=== PATIENT | male | born 1965 | race Caucasian/White ===

== ENCOUNTER 2018-08-25 12:31 | Emergency (ER) | payer OTHER ==
[~2018-08-25] VITALS: Ht 170.2 cm; Wt 75.0 kg
--- NOTE | 2018-08-25 12:37 | NUR ---
Pt BIB [facility]- c/o sudden onset sub sternal CP starting this morning at 0700 while at work. Pt states that while the pain was present it was 8/10 and he had SOB and nausea. Pt states that the pain is now resolved. Pt states that over the last week has had a cough/cold type sx. Pt placed in gown, positioned for comfort in bed. Continuous heart, oxygen and BP Monitors applied, all safety measures observed.
--- NOTE | 2018-08-25 13:15 | NUR ---
break rn: md Reddy has assessed pt, NAD, no needs at this time, awaiting labs and rads
[2018-08-25] MEDS ORDERED: SODIUM CHLORIDE FLUSH 10ML SYR IVF ONE (13:30)
[2018-08-25 13:39] LABS: BASOPHILS # (AUTO) 0.11 x10^3/uL (0-0.1); BASOPHILS % (AUTO) 1 % (0-1); EOSINOPHILS # (AUTO) 0.06 x10^3/uL (0-0.4); EOSINOPHILS % (AUTO) 1 % (1-7); LYMPHOCYTES # (AUTO) 1.03 x10^3/uL (1-3.4); LYMPHOCYTES % (AUTO) 8 % (22-44); MD NO; MEAN CORPUSCULAR HEMOGLOBIN 30.9 pg (27.5-34.5); MEAN CORPUSCULAR HGB CONC 34.2 g/dL (33.2-36.2); MEAN CORPUSCULAR VOLUME 90.1 fL (81-97); MEAN PLATELET VOLUME 9.1 fL (7.4-10.4); MONOCYTES % (AUTO) 7 % (2-9); NEUTROPHILS # (AUTO) 11.17 x10^3/uL (1.8-6.8); NEUTROPHILS % (AUTO) 84 % (42-75); PLATELET COUNT 195 x10^3/uL (130-400); RED BLOOD COUNT 5.13 x10^6/uL (4.38-5.82); RED CELL DISTRIBUTION WIDTH 12.8 % (9.4-14.8)
[2018-08-25] MEDS ORDERED: OMNIPAQUE 350 MG/ML, 100ML BOTTLE ONE (13:41)
[2018-08-25 13:45] LABS: ALBUMIN 3.8 g/dL (3.4-5.0); ANION GAP 6 mmol/L (5-15); CALCIUM 8.7 mg/dL (8.5-10.1); CHLORIDE 111 mmol/L (98-107)
[2018-08-25 13:48] LABS: ALANINE AMINOTRANSFERASE 49 U/L (12-78); ALKALINE PHOSPHATASE 76 U/L (45-117); BILIRUBIN,TOTAL 0.2 mg/dL (0.2-1.0); CHOL/HDL RATIO 6.6; CHOLESTEROL, TOTAL 223 mg/dL (140-239); CREATININE 1.17 mg/dL (0.7-1.3); HDL CHOL % 15 % (26-37); HDL CHOLESTEROL (DIRECT) 34 mg/dL (40-60); LDL CHOLESTEROL,CALCULATED 139 mg/dL (54-169); LDL/HDL RATIO 4.1 (0.5-3.0); TOTAL PROTEIN 6.9 g/dL (6.4-8.2); TRIGLYCERIDES 250 mg/dL (50-200); TROPONIN I < 0.015 ng/mL (0.000-0.045); VLDL CHOLESTEROL 50 mg/dL (0-25)
[2018-08-25 13:53] LABS: PSA SCREEN 0.88 ng/mL (0.00-4.00)
[2018-08-25 14:34] VITALS: BP 114/71
== END 2018-08-25 14:45 | disposition home or self-care (01) ==
LOC: ED 13:59
DX: R07.2 Precordial pain (principal)
CPT/HCPCS: 36415; 71275; 80053; 80061; 82306; 82627; 82670; 83735; 84403; 84443; 84484; 85025; 93005; 99284; G0103; Q9967

== ENCOUNTER 2018-09-28 12:57 | Inpatient (IN) | payer OTHER ==
[~2018-09-28] VITALS: Ht 170.2 cm; Wt 76.5 kg
[2018-09-28 14:11] VITALS: BP 115/81
[2018-09-28] MEDS ORDERED: ASPI81TA45 PO (14:27)
[2018-09-28] MEDS ORDERED: ATOR40TA78 PO (14:27)
[2018-09-28] MEDS ORDERED: CARV3.122 PO (14:27)
[2018-09-28] MEDS ORDERED: ISOS10TA6 PO (14:27)
[2018-09-28 15:29] LABS: INTERNATIONAL NORMALIZED RATIO 1.05 (0.93-1.1)
[2018-09-28] MEDS ORDERED: HEPARIN 1,000 UNITS/ML, 10ML ONE (16:22)
[2018-09-28] MEDS ORDERED: VERAPAMIL 2.5 MG/ML, 2ML ONE (16:22)
[2018-09-28] MEDS ORDERED: MIDAZOLAM 1 MG/ML, 2ML ONE ×3 (16:22→16:54)
[2018-09-28] MEDS ORDERED: FENTANYL PF 100 MCG/2ML ONE (16:22)
[2018-09-28] MEDS ORDERED: LIDOCAINE-MPF 1%, 5ML ONE (16:22)
[2018-09-28 16:29] LABS: BASOPHILS # (AUTO) 0.03 x10^3/uL (0-0.1); BASOPHILS % (AUTO) 0 % (0-1); EOSINOPHILS # (AUTO) 0.09 x10^3/uL (0-0.4); EOSINOPHILS % (AUTO) 1 % (1-7); LYMPHOCYTES # (AUTO) 1.87 x10^3/uL (1-3.4); LYMPHOCYTES % (AUTO) 25 % (22-44); MD NO; MEAN CORPUSCULAR HEMOGLOBIN 30.8 pg (27.5-34.5); MEAN CORPUSCULAR HGB CONC 33.9 g/dL (33.2-36.2); MEAN CORPUSCULAR VOLUME 90.9 fL (81-97); MEAN PLATELET VOLUME 9.4 fL (7.4-10.4); MONOCYTES # (AUTO) 0.47 x10^3/uL (0.2-0.8); MONOCYTES % (AUTO) 6 % (2-9); NEUTROPHILS # (AUTO) 5.15 x10^3/uL (1.8-6.8); NEUTROPHILS % (AUTO) 68 % (42-75); PLATELET COUNT 219 x10^3/uL (130-400); RED BLOOD COUNT 5.27 x10^6/uL (4.38-5.82); RED CELL DISTRIBUTION WIDTH 12.7 % (9.4-14.8)
[2018-09-28 16:33] LABS: ANION GAP 4 mmol/L (5-15); CALCIUM 9.4 mg/dL (8.5-10.1); CHLORIDE 112 mmol/L (98-107); CREATININE 1.15 mg/dL (0.7-1.3)
[2018-09-28] MEDS ORDERED: ISOS30TA8 PO (18:16)
[2018-09-28] MEDS ORDERED: TRAZODONE 50MG TABLET PO PRN (19:00)
[2018-09-28] MEDS ORDERED: ONDANSETRON 2MG/ML, 2ML IV PRN (19:00)
[2018-09-28 19:03] VITALS: BP 125/80
[2018-09-28] MEDS: CARVEDILOL 3.125 MG TABLET PO SCH (19:40)
[2018-09-28] MEDS: ATORVASTATIN 40 MG TABLET PO SCH (21:20)
[2018-09-29 01:28] VITALS: BP 102/67
[2018-09-29] MEDS: ACETAMINOPHEN 325 MG TABLET PO PRN ×2 (01:32→14:36)
[2018-09-29 05:12] LABS: ANION GAP 8 mmol/L (5-15); CALCIUM 8.8 mg/dL (8.5-10.1); CHLORIDE 112 mmol/L (98-107); CHOLESTEROL, TOTAL 148 mg/dL (140-239); CREATININE 1.09 mg/dL (0.7-1.3); TRIGLYCERIDES 186 mg/dL (50-200); VLDL CHOLESTEROL 37 mg/dL (0-25)
[2018-09-29 05:14] LABS: CHOL/HDL RATIO 4.2; HDL CHOL % 24 % (26-37); HDL CHOLESTEROL (DIRECT) 35 mg/dL (40-60); LDL CHOLESTEROL,CALCULATED 76 mg/dL (54-169); LDL/HDL RATIO 2.2 (0.5-3.0)
[2018-09-29] MEDS: CARVEDILOL 3.125 MG TABLET PO SCH ×2 (06:30→18:22)
[2018-09-29] MEDS: ASPIRIN 81 MG TABLET CHEW PO SCH (07:28)
[2018-09-29] MEDS: ISOSORBIDE DINITRATE 10 MG TABLET PO SCH (07:29)
[2018-09-29 09:34] VITALS: BP 94/60
[2018-09-29 14:20] VITALS: BP 105/69
[2018-09-29] MEDS: HEPARIN 5,000 UNITS/ML, 1ML SQ SCH ×2 (14:36→21:26)
[2018-09-29 18:22] VITALS: BP 110/73
[2018-09-29 19:31] VITALS: BP 116/78
[2018-09-29] MEDS: ATORVASTATIN 40 MG TABLET PO SCH (21:26)
[2018-09-30 03:25] VITALS: BP 112/72
[2018-09-30] MEDS: HEPARIN 5,000 UNITS/ML, 1ML SQ SCH ×3 (05:24→20:57)
[2018-09-30 07:48] VITALS: BP 114/76
[2018-09-30 09:00] VITALS: BP 114/52
[2018-09-30] MEDS: CARVEDILOL 3.125 MG TABLET PO SCH ×2 (09:03→18:34)
[2018-09-30] MEDS: ASPIRIN 81 MG TABLET CHEW PO SCH (09:04)
[2018-09-30] MEDS: ISOSORBIDE DINITRATE 10 MG TABLET PO SCH (09:04)
[2018-09-30 14:07] VITALS: BP 104/68
[2018-09-30] MEDS: ACETAMINOPHEN 325 MG TABLET PO PRN (14:15)
[2018-09-30] MEDS ORDERED: IBUPROFEN 200 MG TABLET PO ONE (17:00)
[2018-09-30 18:33] VITALS: BP 110/70
[2018-09-30 19:56] VITALS: BP 112/66
[2018-09-30] MEDS: ATORVASTATIN 40 MG TABLET PO SCH (20:56)
[2018-10-01 03:50] VITALS: BP 98/57
[2018-10-01] MEDS: HEPARIN 5,000 UNITS/ML, 1ML SQ SCH (05:54)
[2018-10-01 07:03] VITALS: BP 108/73
[2018-10-01] MEDS ORDERED: CEFUROXIME 1.5 GM in SODIUM CHLORIDE 0.9% 50 ML IVPB ONE ×2 (07:30→20:30)
[2018-10-01] MEDS: ASPIRIN 81 MG TABLET CHEW PO SCH (08:26)
[2018-10-01] MEDS: CARVEDILOL 3.125 MG TABLET PO SCH ×2 (08:26→18:07)
[2018-10-01] MEDS: ISOSORBIDE DINITRATE 10 MG TABLET PO SCH (08:26)
[2018-10-01] MEDS ORDERED: INSULIN LISPRO 100 UNITS/ML, PEN SQ-INSULIN SCH (09:00)
[2018-10-01] MEDS: SODIUM CHLORIDE FLUSH 10ML SYR IVF SCH ×2 (09:00→21:50)
[2018-10-01] MEDS ORDERED: CHLORHEXIDINE 15 ML UDC MM PRN (09:00)
[2018-10-01 09:26] LABS: INTERNATIONAL NORMALIZED RATIO 1.02 (0.93-1.1); PROTHROMBIN TIME 10.7 Seconds (9.6-11.5)
[2018-10-01 09:28] LABS: ALANINE AMINOTRANSFERASE 50 U/L (12-78); ALBUMIN 3.8 g/dL (3.4-5.0); ANION GAP 7 mmol/L (5-15); CALCIUM 9.2 mg/dL (8.5-10.1); CHLORIDE 111 mmol/L (98-107); CREATININE 1.07 mg/dL (0.7-1.3)
[2018-10-01 09:29] LABS: BASOPHILS # (AUTO) 0.02 x10^3/uL (0-0.1); BASOPHILS % (AUTO) 0 % (0-1); EOSINOPHILS # (AUTO) 0.09 x10^3/uL (0-0.4); EOSINOPHILS % (AUTO) 2 % (1-7); LYMPHOCYTES # (AUTO) 1.44 x10^3/uL (1-3.4); LYMPHOCYTES % (AUTO) 23 % (22-44); MD NO; MEAN CORPUSCULAR HEMOGLOBIN 30.9 pg (27.5-34.5); MEAN CORPUSCULAR HGB CONC 33.6 g/dL (33.2-36.2); MEAN PLATELET VOLUME 9.3 fL (7.4-10.4); MONOCYTES # (AUTO) 0.37 x10^3/uL (0.2-0.8); MONOCYTES % (AUTO) 6 % (2-9); NEUTROPHILS % (AUTO) 69 % (42-75); PLATELET COUNT 208 x10^3/uL (130-400); RED BLOOD COUNT 5.21 x10^6/uL (4.38-5.82); RED CELL DISTRIBUTION WIDTH 13.2 % (9.4-14.8)
[2018-10-01 09:30] LABS: ALKALINE PHOSPHATASE 80 U/L (45-117); BILIRUBIN,TOTAL 0.4 mg/dL (0.2-1.0); TOTAL PROTEIN 7.3 g/dL (6.4-8.2)
[2018-10-01] MEDS ORDERED: HEPARIN 5,000 UNITS/ML, 1ML SQ SCH (10:00)
[2018-10-01 11:18] LABS: HEMOGLOBIN A1C 5.8 % (4.2-6.3)
[2018-10-01 14:04] VITALS: BP 115/65
[2018-10-01 18:31] LABS: MICROSCOPIC NOT IND
[2018-10-01 18:39] VITALS: BP 115/76
[2018-10-01] MEDS: ATORVASTATIN 40 MG TABLET PO SCH (21:49)
[2018-10-02 03:59] VITALS: BP 100/61
[2018-10-02 06:38] VITALS: BP 128/89
[2018-10-02 06:39] VITALS: BP 110/74
[2018-10-02] MEDS: CARVEDILOL 3.125 MG TABLET PO SCH ×2 (06:41→18:00)
[2018-10-02 07:30] VITALS: BP 132/66
[2018-10-02] MEDS ORDERED: VANCOMYCIN 1,200 MG in SODIUM CHLORIDE 0.9% 250 ML IVPB ONE (07:30)
[2018-10-02] MEDS ORDERED: EPINEPHRINE 2 MG in SODIUM CHLORIDE 0.9% 248 ML IV SCH (07:30)
[2018-10-02] MEDS ORDERED: POTASSIUM CHLORIDE 80 MEQ, SODIUM BICARBONATE 8.4% 10 MEQ, MAGNESIUM SULFATE 0.5 GM, LI... IV PRN (07:30)
[2018-10-02] MEDS ORDERED: CEFUROXIME 1.5 GM in SODIUM CHLORIDE 0.9% 50 ML IVPB ONE (07:30)
[2018-10-02] MEDS ORDERED: DEXMEDETOMIDINE 200 MCG in SODIUM CHLORIDE 0.9% 48 ML IV SCH (07:30)
[2018-10-02] MEDS ORDERED: REGULAR INSULIN 62.5 UNITS in SODIUM CHLORIDE 0.9% 249.375 ML IV PRN ×2 (07:30→17:55)
[2018-10-02] MEDS ORDERED: MANNITOL PMX 20% 500 ML IVPB PRN (07:30)
[2018-10-02] MEDS ORDERED: CEFUROXIME 1.5 GM in SODIUM CHLORIDE 0.9% 50 ML IVPB PRN (07:30)
[2018-10-02] MEDS ORDERED: PHENYLEPHRINE 10 MG in SODIUM CHLORIDE 0.9% 249 ML IV PRN ×2 (07:30→17:55)
[2018-10-02] MEDS ORDERED: ALBUMIN HUMAN 5% 500 ML IV PRN (07:30)
[2018-10-02] MEDS: ISOSORBIDE DINITRATE 10 MG TABLET PO SCH (07:36)
[2018-10-02] MEDS: ASPIRIN 81 MG TABLET CHEW PO SCH (07:37)
[2018-10-02] MEDS: SODIUM CHLORIDE FLUSH 10ML SYR IVF SCH ×3 (08:30→20:27)
[2018-10-02] MEDS: DOCUSATE 100 MG CAPSULE PO SCH ×2 (09:00→21:00)
[2018-10-02] MEDS ORDERED: FENTANYL PF 250 MCG/5ML ONE ×4 (09:25→09:26)
[2018-10-02] MEDS ORDERED: MIDAZOLAM 10MG/2 ML ONE (09:25)
[2018-10-02] MEDS ORDERED: ROCURONIUM 10MG/ML,5ML ONE ×2 (09:27)
[2018-10-02] MEDS ORDERED: AMINOCAPROIC ACID 250 MG/ML, 20ML ONE ×2 (09:27)
[2018-10-02] MEDS ORDERED: PROPOFOL 10 MG/ML, 20ML ONE (09:27)
[2018-10-02] MEDS ORDERED: PAPAVERINE 30 MG/ML, 2ML ONE (11:09)
[2018-10-02] MEDS ORDERED: HEPARIN 1,000 UNITS/ML, 10ML ONE (11:09)
[2018-10-02] MEDS ORDERED: PAPAVERINE 30 MG/ML, 2ML IVPush ONE (13:12)
[2018-10-02] MEDS ORDERED: HEPARIN 1,000 UNITS/ML, 10ML IV ONE (13:13)
[2018-10-02] MEDS ORDERED: PROTAMINE SULFATE 10 MG/ML, 25ML ONE ×2 (13:41)
[2018-10-02] MEDS ORDERED: AMIODARONE 50 MG/ML, 3ML ONE ×2 (15:57)
[2018-10-02] MEDS ORDERED: DESMOPRESSIN 24 MCG in SODIUM CHLORIDE 0.9% 50 ML IVPB ONE (17:00)
[2018-10-02] MEDS ORDERED: DOBUTAMINE 250 MG in SODIUM CHLORIDE 0.9% 230 ML IV PRN (17:55)
[2018-10-02] MEDS ORDERED: DEXMEDETOMIDINE 200 MCG in SODIUM CHLORIDE 0.9% 48 ML IV PRN (17:55)
[2018-10-02] MEDS ORDERED: SODIUM CHLORIDE 0.9% 1,000 ML IV PRN (17:55)
[2018-10-02] MEDS ORDERED: LACTATED RINGERS 1,000 ML IV SCH (17:55)
[2018-10-02] MEDS ORDERED: VASOPRESSIN 50 UNIT in SODIUM CHLORIDE 0.9% 247.5 ML IV PRN (17:55)
[2018-10-02] MEDS ORDERED: NITROGLYCERIN/D5W PMX 250 ML IV PRN (17:55)
[2018-10-02] MEDS ORDERED: DEXTROSE 4 GM TAB.CHEW PO PRN (18:00)
[2018-10-02] MEDS ORDERED: SODIUM BICARB 8.4%, 50ML SYRINGE IV PRN (18:00)
[2018-10-02] MEDS ORDERED: ONDANSETRON 2MG/ML, 2ML IVPush PRN (18:00)
[2018-10-02] MEDS ORDERED: DEXTROSE 50%, 50ML SYRINGE IVPush PRN (18:00)
[2018-10-02] MEDS ORDERED: LACTATED RINGERS 1,000 ML IV PRN (18:00)
[2018-10-02] MEDS ORDERED: INSULIN REGULAR 100 UNITS/ML, 3ML VIAL IVPush PRN (18:00)
[2018-10-02] MEDS ORDERED: GLUCAGON 1 MG IM PRN (18:00)
[2018-10-02] MEDS ORDERED: HYDROcodone/APAP 5/325 TABLET PO PRN (18:00)
[2018-10-02] MEDS ORDERED: PROCHLORPERAZINE 5 MG/ML, 2ML IVPush PRN (18:00)
[2018-10-02] MEDS ORDERED: ACETAMINOPHEN 325 MG TABLET PO PRN (18:00)
[2018-10-02] MEDS ORDERED: EPINEPHRINE 2 MG in SODIUM CHLORIDE 0.9% 248 ML IV PRN (18:00)
[2018-10-02] MEDS ORDERED: MIDAZOLAM 1 MG/ML, 5ML IVPush PRN (18:00)
[2018-10-02] MEDS ORDERED: CEFUROXIME 1.5 GM in SODIUM CHLORIDE 0.9% 50 ML IVPB SCH (18:00)
[2018-10-02] MEDS: KSCALE TO 4.5 IV SCH (18:00)
[2018-10-02] MEDS ORDERED: ACETAMINOPHEN 650 MG SUPP PR PRN (18:00)
[2018-10-02] MEDS ORDERED: BISACODYL 10 MG SUPP PR PRN (18:00)
[2018-10-02] MEDS ORDERED: SODIUM BICARBONATE 1 MEQ/ML, 50ML VIAL ONE (18:15)
[2018-10-02] MEDS ORDERED: LIDOCAINE 2% 100MG/5ML SYRINGE ONE (18:15)
[2018-10-02] MEDS ORDERED: ALBUMIN HUMAN 25% 50 ML ONE (18:16)
[2018-10-02] MEDS ORDERED: methylPREDNISolone SOD SUCC 125 MG/2 ML ONE (18:16)
[2018-10-02] MEDS ORDERED: HEPARIN 1,000 UNITS/ML, 30ML ONE (18:16)
[2018-10-02 18:24] LABS: GLUCOSE BY BLOOD GAS ANALYZER 130 mg/dL (70-110); HEMOGLOBIN BY BLOOD GAS ANALYZ 12.8 g/dL (14.0-18.0); POTASSIUM BY BLOOD GAS ANALYZR 4.5 mmol/L (3.6-5.5)
[2018-10-02 18:59] LABS: INTERNATIONAL NORMALIZED RATIO 1.17 (0.93-1.1); PROTHROMBIN TIME 12.2 Seconds (9.6-11.5)
[2018-10-02] MEDS: MAGNESIUM SULFATE 1 GM in SODIUM CHLORIDE 0.9% 50 ML IVPB SCH (19:12)
[2018-10-02 19:45] VITALS: BP 117/77
[2018-10-02] MEDS: VANCOMYCIN 1,200 MG in SODIUM CHLORIDE 0.9% 250 ML IVPB SCH (20:26)
[2018-10-02] MEDS: morphine SULFATE 10 MG/ML, 1ML IVPush PRN ×2 (20:26→22:42)
[2018-10-02] MEDS: MUPIROCIN OINT 2%, 22GM NAS SCH (20:27)
[2018-10-02] MEDS: INSULIN LISPRO 100 UNITS/ML, PEN SQ-INSULIN SCH (21:00)
[2018-10-02] MEDS: ATORVASTATIN 40 MG TABLET PO SCH (21:00)
[2018-10-03] MEDS: OXYcodone IR 5MG TABLET PO PRN ×4 (03:30→20:20)
[2018-10-03 03:44] VITALS: BP 110/65
[2018-10-03 04:58] LABS: BASOPHILS # (AUTO) 0.03 x10^3/uL (0-0.1); BASOPHILS % (AUTO) 0 % (0-1); EOSINOPHILS % (AUTO) 0 % (1-7); LYMPHOCYTES # (AUTO) 0.42 x10^3/uL (1-3.4); LYMPHOCYTES % (AUTO) 3 % (22-44); MD NO; MEAN CORPUSCULAR HEMOGLOBIN 31.1 pg (27.5-34.5); MEAN CORPUSCULAR HGB CONC 33.6 g/dL (33.2-36.2); MEAN CORPUSCULAR VOLUME 92.3 fL (81-97); MONOCYTES # (AUTO) 0.68 x10^3/uL (0.2-0.8); MONOCYTES % (AUTO) 5 % (2-9); NEUTROPHILS # (AUTO) 11.81 x10^3/uL (1.8-6.8); NEUTROPHILS % (AUTO) 91 % (42-75); PLATELET COUNT 148 x10^3/uL (130-400); RED BLOOD COUNT 4.04 x10^6/uL (4.38-5.82); RED CELL DISTRIBUTION WIDTH 13.4 % (9.4-14.8)
[2018-10-03 05:23] LABS: ALBUMIN 3.6 g/dL (3.4-5.0); ANION GAP 8 mmol/L (5-15); CALCIUM 8.5 mg/dL (8.5-10.1); CHLORIDE 115 mmol/L (98-107); CREATININE 1.16 mg/dL (0.7-1.3)
[2018-10-03] MEDS: KSCALE TO 4.5 IV SCH ×3 (05:27→11:33)
[2018-10-03] MEDS: CARVEDILOL 3.125 MG TABLET PO SCH ×2 (06:00→18:35)
[2018-10-03] MEDS: DOCUSATE 100 MG CAPSULE PO SCH ×2 (07:37→20:20)
[2018-10-03] MEDS: ASPIRIN 81 MG TABLET CHEW PO SCH (07:37)
[2018-10-03] MEDS: MUPIROCIN OINT 2%, 22GM NAS SCH ×2 (07:38→22:37)
[2018-10-03] MEDS: VANCOMYCIN 1,200 MG in SODIUM CHLORIDE 0.9% 250 ML IVPB SCH (07:38)
[2018-10-03] MEDS: SODIUM CHLORIDE FLUSH 10ML SYR IVF SCH ×5 (07:39→20:20)
[2018-10-03] MEDS: ASPIRIN 81 MG TABLET EC PO SCH (07:40)
[2018-10-03] MEDS: INSULIN LISPRO 100 UNITS/ML, PEN SQ-INSULIN SCH ×4 (07:56→20:30)
[2018-10-03] MEDS: AMIODARONE 200 MG TABLET PO SCH ×2 (09:18→20:19)
[2018-10-03] MEDS ORDERED: MAGNESIUM HYDROXIDE 8%, 30ML UDC PO PRN (09:30)
[2018-10-03 11:15] VITALS: BP 104/72
[2018-10-03] MEDS ORDERED: OXYcodone IR 5MG TABLET PO ONE (12:00)
[2018-10-03] MEDS ORDERED: BACLOFEN 10 MG TABLET PO PRN (13:30)
[2018-10-03 15:24] VITALS: BP 97/64
[2018-10-03] MEDS: FUROSEMIDE 20 MG/2 ML IV SCH (18:35)
[2018-10-03 19:53] VITALS: BP 104/70
[2018-10-03] MEDS: MAGNESIUM SULFATE 1 GM in SODIUM CHLORIDE 0.9% 50 ML IVPB SCH (20:18)
[2018-10-03] MEDS: CHLORHEXIDINE 15 ML UDC MM SCH (20:18)
[2018-10-03] MEDS: ATORVASTATIN 40 MG TABLET PO SCH (20:19)
[2018-10-04 00:50] VITALS: BP 106/73
[2018-10-04 06:14] LABS: BASOPHILS # (AUTO) 0.02 x10^3/uL (0-0.1); BASOPHILS % (AUTO) 0 % (0-1); EOSINOPHILS # (AUTO) 0.01 x10^3/uL (0-0.4); EOSINOPHILS % (AUTO) 0 % (1-7); LYMPHOCYTES # (AUTO) 1.03 x10^3/uL (1-3.4); LYMPHOCYTES % (AUTO) 7 % (22-44); MD NO; MEAN CORPUSCULAR HEMOGLOBIN 31.2 pg (27.5-34.5); MEAN CORPUSCULAR HGB CONC 33.4 g/dL (33.2-36.2); MEAN CORPUSCULAR VOLUME 93.4 fL (81-97); MEAN PLATELET VOLUME 9.5 fL (7.4-10.4); MONOCYTES # (AUTO) 1.34 x10^3/uL (0.2-0.8); MONOCYTES % (AUTO) 8 % (2-9); NEUTROPHILS # (AUTO) 13.52 x10^3/uL (1.8-6.8); NEUTROPHILS % (AUTO) 85 % (42-75); PLATELET COUNT 148 x10^3/uL (130-400); RED BLOOD COUNT 4.01 x10^6/uL (4.38-5.82); RED CELL DISTRIBUTION WIDTH 13.3 % (9.4-14.8)
[2018-10-04 06:17] LABS: ANION GAP 7 mmol/L (5-15); CALCIUM 8.7 mg/dL (8.5-10.1); CHLORIDE 104 mmol/L (98-107); CREATININE 0.94 mg/dL (0.7-1.3)
[2018-10-04] MEDS: CARVEDILOL 3.125 MG TABLET PO SCH ×2 (06:43→17:46)
[2018-10-04] MEDS: OXYcodone IR 5MG TABLET PO PRN ×3 (06:44→17:54)
[2018-10-04] MEDS: INSULIN LISPRO 100 UNITS/ML, PEN SQ-INSULIN SCH ×4 (07:00→20:53)
[2018-10-04 07:15] VITALS: BP 104/72
[2018-10-04] MEDS: FUROSEMIDE 20 MG/2 ML IV SCH ×2 (08:32→17:47)
[2018-10-04] MEDS: AMIODARONE 200 MG TABLET PO SCH ×2 (08:32→20:55)
[2018-10-04] MEDS: SODIUM CHLORIDE FLUSH 10ML SYR IVF SCH ×6 (08:32→20:57)
[2018-10-04] MEDS: CHLORHEXIDINE 15 ML UDC MM SCH ×2 (08:32→20:54)
[2018-10-04] MEDS: MUPIROCIN OINT 2%, 22GM NAS SCH ×2 (08:33→20:54)
[2018-10-04] MEDS: ASPIRIN 81 MG TABLET CHEW PO SCH (08:33)
[2018-10-04] MEDS: DOCUSATE 100 MG CAPSULE PO SCH ×2 (08:33→20:54)
[2018-10-04] MEDS: ASPIRIN 81 MG TABLET EC PO SCH (08:33)
[2018-10-04] MEDS ORDERED: ENOXAPARIN 40 MG/0.4 ML SQ SCH (09:00)
[2018-10-04 14:56] VITALS: BP 103/73
[2018-10-04 17:45] VITALS: BP 115/76
[2018-10-04 19:48] VITALS: BP 112/76
[2018-10-04] MEDS: MAGNESIUM SULFATE 1 GM in SODIUM CHLORIDE 0.9% 50 ML IVPB SCH (19:55)
[2018-10-04] MEDS: ATORVASTATIN 40 MG TABLET PO SCH (20:54)
[2018-10-05 01:14] VITALS: BP 100/65
[2018-10-05 05:06] LABS: BASOPHILS # (AUTO) 0.08 x10^3/uL (0-0.1); BASOPHILS % (AUTO) 1 % (0-1); EOSINOPHILS # (AUTO) 0.05 x10^3/uL (0-0.4); EOSINOPHILS % (AUTO) 0 % (1-7); LYMPHOCYTES # (AUTO) 1.45 x10^3/uL (1-3.4); LYMPHOCYTES % (AUTO) 11 % (22-44); MD NO; MEAN CORPUSCULAR HEMOGLOBIN 31.2 pg (27.5-34.5); MEAN CORPUSCULAR HGB CONC 33.6 g/dL (33.2-36.2); MEAN CORPUSCULAR VOLUME 92.8 fL (81-97); MEAN PLATELET VOLUME 9.4 fL (7.4-10.4); MONOCYTES # (AUTO) 1.09 x10^3/uL (0.2-0.8); MONOCYTES % (AUTO) 8 % (2-9); NEUTROPHILS # (AUTO) 10.19 x10^3/uL (1.8-6.8); NEUTROPHILS % (AUTO) 79 % (42-75); PLATELET COUNT 170 x10^3/uL (130-400); RED BLOOD COUNT 3.96 x10^6/uL (4.38-5.82)
[2018-10-05] MEDS: CARVEDILOL 3.125 MG TABLET PO SCH ×2 (05:07→18:10)
[2018-10-05 05:15] LABS: ANION GAP 6 mmol/L (5-15); CALCIUM 8.7 mg/dL (8.5-10.1); CHLORIDE 102 mmol/L (98-107); CREATININE 0.98 mg/dL (0.7-1.3)
[2018-10-05] MEDS: INSULIN LISPRO 100 UNITS/ML, PEN SQ-INSULIN SCH ×2 (07:00→11:41)
[2018-10-05 07:44] VITALS: BP 98/65
[2018-10-05] MEDS: OXYcodone IR 5MG TABLET PO PRN (08:26)
[2018-10-05] MEDS: ASPIRIN 81 MG TABLET CHEW PO SCH (08:26)
[2018-10-05] MEDS: ASPIRIN 81 MG TABLET EC PO SCH (08:26)
[2018-10-05] MEDS: AMIODARONE 200 MG TABLET PO SCH ×2 (08:26→20:06)
[2018-10-05] MEDS: CLOPIDOGREL 75 MG TABLET PO SCH (08:26)
[2018-10-05] MEDS: DOCUSATE 100 MG CAPSULE PO SCH ×2 (08:26→20:06)
[2018-10-05] MEDS: MUPIROCIN OINT 2%, 22GM NAS SCH ×2 (08:27→20:06)
[2018-10-05] MEDS: CHLORHEXIDINE 15 ML UDC MM SCH (08:30)
[2018-10-05] MEDS: SODIUM CHLORIDE FLUSH 10ML SYR IVF SCH ×6 (08:31→20:09)
[2018-10-05] MEDS: FUROSEMIDE 20 MG/2 ML IV SCH ×2 (08:32→18:10)
[2018-10-05 14:00] VITALS: BP 100/64
[2018-10-05 18:08] VITALS: BP 99/70
[2018-10-05] MEDS: ATORVASTATIN 40 MG TABLET PO SCH (20:06)
[2018-10-05 21:32] VITALS: BP 102/69
[2018-10-06 02:51] VITALS: BP 94/61
[2018-10-06] MEDS: CARVEDILOL 3.125 MG TABLET PO SCH ×2 (05:23→17:56)
[2018-10-06 05:45] LABS: BASOPHILS # (AUTO) 0.04 x10^3/uL (0-0.1); BASOPHILS % (AUTO) 0 % (0-1); EOSINOPHILS # (AUTO) 0.09 x10^3/uL (0-0.4); EOSINOPHILS % (AUTO) 1 % (1-7); LYMPHOCYTES # (AUTO) 1.19 x10^3/uL (1-3.4); LYMPHOCYTES % (AUTO) 12 % (22-44); MD NO; MEAN CORPUSCULAR HEMOGLOBIN 30.8 pg (27.5-34.5); MEAN CORPUSCULAR HGB CONC 32.9 g/dL (33.2-36.2); MEAN CORPUSCULAR VOLUME 93.5 fL (81-97); MEAN PLATELET VOLUME 9.6 fL (7.4-10.4); MONOCYTES # (AUTO) 1.05 x10^3/uL (0.2-0.8); MONOCYTES % (AUTO) 10 % (2-9); NEUTROPHILS # (AUTO) 7.82 x10^3/uL (1.8-6.8); NEUTROPHILS % (AUTO) 77 % (42-75); PLATELET COUNT 208 x10^3/uL (130-400); RED BLOOD COUNT 3.93 x10^6/uL (4.38-5.82); RED CELL DISTRIBUTION WIDTH 13.1 % (9.4-14.8)
[2018-10-06 05:51] LABS: ANION GAP 7 mmol/L (5-15); CALCIUM 8.9 mg/dL (8.5-10.1); CHLORIDE 98 mmol/L (98-107); CREATININE 0.96 mg/dL (0.7-1.3)
[2018-10-06] MEDS ORDERED: POTASSIUM CHLORIDE 20 MEQ TAB.ER.PRT PO ONE (08:00)
[2018-10-06 08:07] VITALS: BP 101/69
[2018-10-06] MEDS: MUPIROCIN OINT 2%, 22GM NAS SCH ×2 (08:20→21:02)
[2018-10-06] MEDS: FUROSEMIDE 20 MG/2 ML IV SCH (08:20)
[2018-10-06] MEDS: CLOPIDOGREL 75 MG TABLET PO SCH (08:20)
[2018-10-06] MEDS: DOCUSATE 100 MG CAPSULE PO SCH ×2 (08:20→21:02)
[2018-10-06] MEDS: ASPIRIN 81 MG TABLET CHEW PO SCH (08:21)
[2018-10-06] MEDS: ASPIRIN 81 MG TABLET EC PO SCH ×2 (08:21→09:00)
[2018-10-06] MEDS: AMIODARONE 200 MG TABLET PO SCH ×2 (08:21→21:02)
[2018-10-06] MEDS: SODIUM CHLORIDE FLUSH 10ML SYR IVF SCH ×6 (08:21→21:03)
[2018-10-06] MEDS: BISACODYL 5 MG EC TABLET PO PRN ×2 (09:25→21:02)
[2018-10-06 13:50] VITALS: BP 111/74
[2018-10-06 17:08] VITALS: BP 107/70
[2018-10-06] MEDS: OXYcodone IR 5MG TABLET PO PRN ×2 (17:11→21:02)
[2018-10-06 20:23] VITALS: BP 109/70
[2018-10-06] MEDS: ATORVASTATIN 40 MG TABLET PO SCH (21:02)
[2018-10-06] MEDS: DOXYCYCLINE 100MG TABLET PO SCH (21:03)
[2018-10-07 03:26] VITALS: BP 103/69
[2018-10-07] MEDS: ACETAMINOPHEN 325 MG TABLET PO PRN (03:28)
[2018-10-07 04:52] LABS: BASOPHILS # (AUTO) 0.05 x10^3/uL (0-0.1); BASOPHILS % (AUTO) 1 % (0-1); EOSINOPHILS # (AUTO) 0.16 x10^3/uL (0-0.4); EOSINOPHILS % (AUTO) 2 % (1-7); LYMPHOCYTES # (AUTO) 1.23 x10^3/uL (1-3.4); LYMPHOCYTES % (AUTO) 12 % (22-44); MD NO; MEAN CORPUSCULAR HEMOGLOBIN 30.9 pg (27.5-34.5); MEAN CORPUSCULAR HGB CONC 33.5 g/dL (33.2-36.2); MEAN CORPUSCULAR VOLUME 92.2 fL (81-97); MEAN PLATELET VOLUME 9.1 fL (7.4-10.4); MONOCYTES # (AUTO) 1.31 x10^3/uL (0.2-0.8); MONOCYTES % (AUTO) 12 % (2-9); NEUTROPHILS # (AUTO) 7.94 x10^3/uL (1.8-6.8); NEUTROPHILS % (AUTO) 74 % (42-75); PLATELET COUNT 248 x10^3/uL (130-400); RED BLOOD COUNT 3.89 x10^6/uL (4.38-5.82); RED CELL DISTRIBUTION WIDTH 13.4 % (9.4-14.8)
[2018-10-07 05:00] LABS: ANION GAP 6 mmol/L (5-15); CALCIUM 9.2 mg/dL (8.5-10.1); CHLORIDE 99 mmol/L (98-107); CREATININE 0.95 mg/dL (0.7-1.3)
[2018-10-07 06:17] VITALS: BP 110/75
[2018-10-07] MEDS: CARVEDILOL 3.125 MG TABLET PO SCH (06:18)
[2018-10-07] MEDS ORDERED: CLOP75TA PO (07:11)
[2018-10-07] MEDS ORDERED: POTA10TA5 PO (07:11)
[2018-10-07] MEDS ORDERED: DOCU-131 PO (07:11)
[2018-10-07] MEDS ORDERED: FURO-93 PO (07:11)
[2018-10-07] MEDS ORDERED: OXYC5TAB3 PO (07:11)
[2018-10-07] MEDS ORDERED: DOXY100T PO (07:11)
[2018-10-07] MEDS ORDERED: AMIO200T42 PO (07:11)
[2018-10-07] MEDS ORDERED: POTASSIUM CHLORIDE 10 MEQ TABLET.ER PO SCH (08:00)
[2018-10-07] MEDS: DOCUSATE 100 MG CAPSULE PO SCH (08:40)
[2018-10-07] MEDS: MUPIROCIN OINT 2%, 22GM NAS SCH (08:40)
[2018-10-07] MEDS: ASPIRIN 81 MG TABLET EC PO SCH (08:40)
[2018-10-07] MEDS: CLOPIDOGREL 75 MG TABLET PO SCH (08:40)
[2018-10-07] MEDS: AMIODARONE 200 MG TABLET PO SCH (08:42)
[2018-10-07 08:43] VITALS: BP 108/73
[2018-10-07] MEDS: SODIUM CHLORIDE FLUSH 10ML SYR IVF SCH ×3 (08:43)
[2018-10-07] MEDS: DOXYCYCLINE 100MG TABLET PO SCH (08:44)
[2018-10-07] MEDS ORDERED: FUROSEMIDE 20 MG/2 ML IV SCH (09:00)
== END 2018-10-07 14:40 | disposition home health service (06) | DRG 234 ==
LOC: CACL 12:57 → 5SO 17:40 → CACL 23:08 → CSU 10-02 07:29 → 5SO 10-02 07:42 → CCU 10-02 11:27 → CSU 10-02 12:09 → 5SO 10-03 10:53 → DCLOUNGE 10-07 14:17
PROVIDERS: ADMIT Internal Medicine Interventional Cardiology; ATTEND Internal Medicine Interventional Cardiology
PROC: 4A023N7 Measurement of Cardiac Sampling and Pressure, Left Heart, Percutaneous Approach (ICD-10-PCS; 2018-09-28)
PROC: B2111ZZ Fluoroscopy of Multiple Coronary Arteries using Low Osmolar Contrast (ICD-10-PCS; 2018-09-28)
PROC: B2151ZZ Fluoroscopy of Left Heart using Low Osmolar Contrast (ICD-10-PCS; 2018-09-28)
PROC: 02100Z9 Bypass Coronary Artery, One Artery from Left Internal Mammary, Open Approach (ICD-10-PCS; 2018-10-02)
PROC: 021209W Bypass Coronary Artery, Three Arteries from Aorta with Autologous Venous Tissue, Open Approach (ICD-10-PCS; 2018-10-02)
PROC: 06BP4ZZ Excision of Right Saphenous Vein, Percutaneous Endoscopic Approach (ICD-10-PCS; 2018-10-02)
PROC: 02HV33Z Insertion of Infusion Device into Superior Vena Cava, Percutaneous Approach (ICD-10-PCS; 2018-10-02)
PROC: B548ZZA Ultrasonography of Superior Vena Cava, Guidance (ICD-10-PCS; 2018-10-02)
PROC: 5A1221Z Performance of Cardiac Output, Continuous (ICD-10-PCS; 2018-10-02)
PROC: 03HY32Z Insertion of Monitoring Device into Upper Artery, Percutaneous Approach (ICD-10-PCS; principal; 2018-10-02 10:00)
DX: I25.110 Atherosclerotic heart disease of native coronary artery with unstable angina pectoris (principal); D68.69 Other thrombophilia; J98.11 Atelectasis; D64.9 Anemia, unspecified; D72.829 Elevated white blood cell count, unspecified; E78.5 Hyperlipidemia, unspecified; F41.9 Anxiety disorder, unspecified; G89.18 Other acute postprocedural pain; I11.9 Hypertensive heart disease without heart failure; I95.9 Hypotension, unspecified; I25.82 Chronic total occlusion of coronary artery; I48.0 Paroxysmal atrial fibrillation; Z82.49 Family history of ischemic heart disease and other diseases of the circulatory system; Z87.891 Personal history of nicotine dependence; Z88.0 Allergy status to penicillin
CPT/HCPCS: 36415; 36600; 93458; J3490; S0017; 71045; 71046; 80048; 80053; 80061; 81003; 82040; 82330; 82800; 82803; 82810; 82947; 82962; 83036; 83735; 84132; 84295; 85014; 85018; 85025; 85049; 85347; 85610; 85730; 86850; 86900; 86923; 87081; 93005; 93306; 93312; 93321; 93325; 93880; 93970; 94002; 94003; 94150; 99156; 99157; C1894; G0378; J0697; J1644; J1815; J2250; J2405; J2704; J2720; J3010; J3370; J3475; J3480; P9045; P9047; C1751; C1760; C1887; J0171; J0282; J1940; J2270; J2370; J2440; J2930; J7050; Q9967

== ENCOUNTER → 2019-04-26 | Outpatient (CLI) | payer OTHER ==
[~2019-04-26] MED LIST: AMIO200T42 PO; ASPI81TA45 PO; ATOR40TA78 PO; CARV3.122 PO; CLOP75TA PO; DOCU-131 PO; DOXY100T PO; FURO-93 PO; ISOS10TA6 PO; ISOS30TA8 PO; OXYC5TAB3 PO; POTA10TA5 PO
== END | disposition home or self-care (01) ==
LOC: CFH 10:23
PROVIDERS: ATTEND Physician Assistant Medical
DX: I10 Essential (primary) hypertension (principal); E78.2 Mixed hyperlipidemia; Z95.1 Presence of aortocoronary bypass graft
CPT/HCPCS: 71046

== ENCOUNTER → 2019-05-25 | Outpatient (CLI) | payer OTHER ==
[~2019-05-25] MED LIST changes: +OMNIPAQUE 350 MG/ML, 75ML BOTTLE ONE
== END | disposition home or self-care (01) ==
LOC: CFH 15:01
PROVIDERS: ATTEND Thoracic Surgery (Cardiothoracic Vascular Surgery)
DX: R07.89 Other chest pain (principal); Z95.1 Presence of aortocoronary bypass graft
CPT/HCPCS: 71260; Q9967

== ENCOUNTER → 2020-06-19 | Outpatient (CLI) | payer OTHER ==
[~2020-06-19] MED LIST changes: -OMNIPAQUE 350 MG/ML, 75ML BOTTLE ONE; -OXYC5TAB3 PO; +OXYC5TAB98 PO; +REGADENOSON 0.4 MG/5 ML SYRINGE ONE
== END | disposition home or self-care (01) ==
LOC: CVU 06:40
PROVIDERS: ATTEND Registered Nurse
DX: R07.9 Chest pain, unspecified (principal); R06.00 Dyspnea, unspecified; E78.5 Hyperlipidemia, unspecified; Z95.1 Presence of aortocoronary bypass graft
CPT/HCPCS: 78452; 93017; 93306; 93356; A9502; J2785

== ENCOUNTER → 2020-06-26 | Outpatient (CLI) | payer OTHER ==
[~2020-06-26] MED LIST changes: -REGADENOSON 0.4 MG/5 ML SYRINGE ONE
== END | disposition home or self-care (01) ==
LOC: CFH 09:33
PROVIDERS: ATTEND Registered Nurse
DX: E78.5 Hyperlipidemia, unspecified (principal); R06.00 Dyspnea, unspecified; I10 Essential (primary) hypertension; I25.83 Coronary atherosclerosis due to lipid rich plaque; R53.83 Other fatigue; Z95.5 Presence of coronary angioplasty implant and graft
CPT/HCPCS: 71046